=== PATIENT | female | born 1950 | race Caucasian/White ===

== ENCOUNTER 2021-09-03 12:51 | Emergency (ER) | payer OTHER ==
--- OUTSIDE RECORDS SUMMARY | 2021-09-03 12:54 | XMS REPORT | Continuity of Care Document ---
:1950 Author Organization [facility] t Address [address] [place] [address] Care Team Providers Name Role Phone Freddy COBIAN Attending Clinician Unavailable RYDER SINGH Attending Clinician Unavailable RYDER SINGH Attending Clinician Unavailable Freddy COBIAN Admitting Clinician Unavailable Payers Payer Name Policy Type Policy Number Effective Date Expiration Date Nikos berumen [employer] MEDICARE ADV [id number] 2017 00:00:00 MEDICARE PART A [id number] 2017 \T\ B 00:00:00 Problems This patient has no known problems. Allergies, Adverse Reactions, Alerts Allergy Allergy Status Severity Reaction(s) Onset Inactive Treating Comm ents Source Name Type Date Date Clinician aspirin DA Active [place] 2018-0 [facility] 6-06 [place] 00:00: [facility] [place] Active [place] [facility] 1-16 [place] 00:00: [facility]ope [facility] NO KNOWN Drug Active [facility] ALLERGIE Class [facility] Medications This patient has no known medications. Procedures This patient has no known procedures. Encounters Start End Encounter Admission Attending Care Care Encounter Source Date/Time Date/Time Type Type Clinicians Facility Department ID 2021-04-26 Outpatient R [facility] [id number] [facility] 05:22:17 JUDY Umana [facility] 2020-09-23 2020-09-23 Outpatient R [facility] [id number] [facility] 13:00:00 13:00:00 [id number] [facility] 2020-09-23 2020-09-23 Outpatient R [facility] [id number] Univers 13:00:00 13:00:00 JUDY Umana [facility] 2020-09-22 2020-09-22 Outpatient R [facility] [id number] Univers 15:15:00 15:15:00 [id number] [facility] 2020-09-22 2020-09-22 Outpatient R [facility] [id number] Univers 15:15:00 15:15:00 [facility] 2020-06-09 2020-06-09 Outpatient R MED SINGH [facility] [id number] Univers 09:20:00 09:20:00 MED SINGH [id number] [facility] 2020-06-09 2020-06-09 Outpatient R MED SINGH [facility] [id number] Univers 09:20:00 09:20:00 MED SINGH [facility] 2020-03-14 2020-03-14 Outpatient R MED SINGH [facility] [id number] Univers 09:20:00 09:20:00 MED SINGH [id number] [facility] 2020-03-14 2020-03-14 Outpatient R MED SINGH [facility] [id number] Univers 09:20:00 09:20:00 MED SINGH [facility] 2019-12-07 2019-12-07 Outpatient MED DAVISON [facility] [id number] Univers 11:00:00 11:00:00 MED SINGH [id number] [facility] 2019-12-07 2019-12-07 Outpatient R MED SINGH [facility] [id number] Univers 11:00:00 11:00:00 MED SINGH [facility] Results Test Description Test Time Test Comments Results Result Comments Source COMPREHENSIVE METABOLIC PANEL 2018-11-30 19:30:00 Test Item Value Reference Range Interpretation Comme nts SODIUM (test code = NA) 141 mmol/L 136-145 N POTASSIUM (test code = K) 4.2 mmol/L 3.5-5.1 N CHLORIDE (test code = CL) 104.0 mmol/L 98-107 N CARBON DIOXIDE (test code = CO2) 26.3 mmol/L 21-32 N GLUCOSE (test code = GLU) 107 mg/dL 70-110 N BLOOD UREA NITROGEN (test code = 30 mg/dL 7-18 H BUN) GLOMERULAR FILTRATION RATE (test 50.6 >60 Unit of measure: code = GFR) mL/min/1.73 m2R eference Range:Healthy A dults >90 mL/min/1.7 3 m2 For Chronic Kidney Disease: Stage II Mi ld Decrease in GFR 6 0-90 Stage III Mo derate Decrease in GFR 30-59 Stage IV Se justine Decrease in GFR 15- 29 Stage V Kidney F ailure <15 CREATININE (test code = CREAT) 1.08 mg/dL 0.55-1.30 N TOTAL PROTEIN (test code = PROT) 6.8 g/dL 6.4-8.2 N ALBUMIN (test code = ALB) 3.6 g/dL 3.4-5.0 N GLOBULIN (test code = GLOB) 3.2 g/dL 2.2-4.2 N ALBUMIN/GLOBULIN RATIO (test 1.1 0.7-2.0 N code = A/G) CALCIUM (test code = CA) 8.5 mg/dL 8.2-10.1 N BILIRUBIN TOTAL (test code = 0.43 mg/dL 0.2-1.00 N BILT) SGOT/AST (test code = AST) 21.0 U/L 15-37 N SGPT/ALT (test code = ALT) 31.0 U/L 12-78 N P lease note new normal range. ALKALINE PHOSPHATASE TOTAL (test 101 U/L 46-116 N code = ALKP) PROTHROMBIN [id number] 19:25:00 Test Item Value Reference Range Interpretation Comments PROTHROMBIN TIME 11.0 secs 10.1-12.5 N PATIENT (test code = PTP) INTERNATIONAL NORMAL 0.97 <2.0 RECOMME NDED THERAPEUTIC RATIO (test code = RANGE FOR ORAL INR) ANTICOAGULANTTR EATMENT: CONDI TION INRProphylaxis of venous thrombos is in 2.0 - 3.0 high-risk medic al or surgical patientsTreatme nt of venous thrombos is 2.0 - 3.0Prevention o f embolism 2.0 - 3.0Prevention o f recurrent embol ism, or 3.0 - 4. 5 patients with mechanical pros thetic intravascular v gomes IS PATIENT ON ANTICOAGULANTS ? NHas Lab been notified if Patient is on Heparin Drip? NOTHROMBOPLASTIN TIME [id number] 19:25:00 Test Item Value Reference Range Interpretation Comments PTT ACTIVATED (test code = APTT) 31.2 secs 24.9-37.0 N IS PATIENT ON ANTICOAGULANTS ? NHas Lab been notified if Patient is on Heparin Drip? NOCBC W/AUTO [id number] 18:33:00 Test Item Value Reference Range Interpretation Comments WHITE BLOOD CELL (test code = WBC) 7.3 K/mm3 5.8-11.0 N RED BLOOD CELL (test code = RBC) 4.74 M/mm3 4.2-5.4 N HEMOGLOBIN (test code = HGB) 13.3 g/dL 12-16 N HEMATOCRIT (test code = HCT) 41.1 % 37-47 N MEAN CELL VOLUME (test code = MCV) 87 fL 80-98 N MEAN CELL HGB (test code = MCH) 28.1 pg 27-34 N MEAN CELL HGB CONCENTRATION (test 32.4 g/dL 30.8-34.1 N code = MCHC) RED CELL DISTRIBUTION WIDTH (test 14.3 % 11-16 N code = RDW) PLT (test code = PLT) 320 K/mm3 130-400 N MEAN PLATELET VOLUME (test code = 9.6 fL 8.9-12.1 N MPV) NEUTROPHIL % (test code = NT%) 61.5 % 45-70 N LYMPHOCYTE % (test code = LY%) 28.0 % 20-40 N MONOCYTE % (test code = MO%) 8.6 % 3-10 N EOSINOPHIL % (test code = EO%) 1.2 % 1-5 N BASOPHIL % (test code = BA%) 0.4 % 0.0-1.1 N NEUTROPHIL # (test code = NT#) 4.50 K/mm3 2.00-7.50 N LYMPHOCYTE # (test code = LY#) 2.05 K/mm3 1.50-4.00 N MONOCYTE # (test code = MO#) 0.63 K/mm3 0.2-0.8 N EOSINOPHIL # (test code = EO#) 0.09 K/mm3 0.04-0.4 N BASOPHIL # (test code = BA#) 0.03 K/mm3 0.02-0.10 N MANUAL DIFF REQUIRED (test code = NO MANUAL DIFF MDIFF) NUCLEATED RED BLOOD CELL (test 0 % 0-0 N code = NRBC)
--- NOTE | 2021-09-03 13:57 | RAD REPORT ---
EXAM DESCRIPTION: CT - CTHCSPWOC - 09/03/2021 1:43 pm CLINICAL HISTORY: Trauma, head and neck injury. PAIN COMPARISON: No comparisons TECHNIQUE: Axial 5 mm thick images of the head were obtained. Axial 2 mm thick images of the cervical spine were obtained with sagittal and coronal reconstruction images generated and reviewed. All CT scans are performed using dose optimization technique as appropriate and may include automated exposure control or mA/KV adjustment according to patient size. FINDINGS: CT HEAD WITHOUT CONTRAST: No acute hemorrhage, hydrocephalus or extra-axial collection is identified.No areas of brain edema or midline shift. The paranasal sinuses and mastoids are clear.The calvarium is intact. CT CERVICAL SPINE WITHOUT CONTRAST: Loss of the normal cervical lordosis is likely related to underlying degenerative changes. Cervical s pondylosis is present, particularly at C5-6 and C6-7. There is evidence of neural foraminal narrowing . Mild central spinal stenosis is noted at C6-7. IMPRESSION: No acute intracranial or cervical spine findings.
--- NOTE | 2021-09-03 14:16 | RAD REPORT ---
EXAM DESCRIPTION: RAD - Shoulder Left 2 View - 09/03/2021 2:09 pm CLINICAL HISTORY: PAIN COMPARISON: No comparisons FINDINGS/IMPRESSION: No acute fracture. No malalignment. Mild left AC joint degenerative changes wit h subacromial spurring.
--- NOTE | 2021-09-03 14:16 | RAD REPORT ---
EXAM DESCRIPTION: RAD - Chest Single View - 09/03/2021 2:09 pm CLINICAL HISTORY: TRAUMA COMPARISON: Chest Pa And Lat (2 Views) dated 08/11/2016; CHEST PA AND LAT 2 VIEW dated 08/28/2014 FINDINGS: Lines: None. Lungs: No evidence of edema or pneumonia. Pleural: No significant pleural effusions or pneumothorax. Cardiac: The heart size is within normal limits. Bones: No acute fractures. Other: IMPRESSION: No acute cardiopulmonary disease.
--- NOTE | 2021-09-03 14:18 | RAD REPORT ---
EXAM DESCRIPTION: RAD - Wrist Right 3 View - 09/03/2021 2:09 pm CLINICAL HISTORY: PAIN COMPARISON: No comparisons FINDINGS/IMPRESSION: No acute fracture. No malalignment. Radiocarpal joint space narrowing. Advanced degenerative changes are present at the base of the thumb.
--- NOTE | 2021-09-03 14:19 | RAD REPORT ---
EXAM DESCRIPTION: RAD - Hand Left 3 View - 09/03/2021 2:09 pm CLINICAL HISTORY: PAIN COMPARISON: Hand Left 3 View dated 10/19/2017; Wrist Right 3 View dated 09/03/2021 FINDINGS/IMPRESSION: No acute fracture. Subluxation at the PIP joints related to degenerative change s. Moderate to advanced interphalangeal joint degenerative changes which are diffuse. Moderate degene rative changes are present the base of the thumb.
--- NOTE | 2021-09-03 16:27 | RAD REPORT ---
EXAM DESCRIPTION: RAD - Knee Right 3 View - 09/03/2021 4:22 pm CLINICAL HISTORY: PAIN COMPARISON: No comparisons FINDINGS: No acute fracture. No malalignment. No significant focal degenerative changes. Right total knee arthroplasty. No evidence of hardware complications. IMPRESSION: No acute osseous abnormality involving the right knee.
--- NOTE | 2021-09-03 16:39 | ER ---
Nurse's Notes [facility] Name: Nadege Alves Age: 71 yrs Sex: Female : 1950 Arrival Date: 09/03/2021 Time: 12:52 Bed 13 Private MD: Harpreet Sarmiento E Diagnosis: Fall (on) (from) other stairs and steps;Abrasion of unspecified part of head, initial encounter;Pain in left shoulder;Headache;Pain in right knee;Pain in right wrist;Pain in left hand;Other specified arthritis, left hand Presentation: 09/03 12:59 Chief complaint: Patient states: "I fell yesterday and hurt my right wrist. I fell face ab2 forward hitting my nose and teeth. I was diagnosed with a UTI this morning." Pt c/o a headache and right wrist pain, right knee pain and eft shoulder pain. Pt states she did hit her head but denied LOC. Pt states she fell at standing level down 2 stairs. 12:59 Acuity: BENJA 3 ab2 12:59 Method Of Arrival: Ambulatory ab2 13:05 Coronavirus screen: Vaccine status: Patient reports receiving the 2nd dose of the covid ab2 vaccine. Client denies travel out of the [place] in the last 14 days. At this time, the client does not indicate any symptoms associated with coronavirus-19. Ebola Screen: Patient negative for fever greater than or equal to 101.5 degrees Fahrenheit, and additional compatible Ebola Virus Disease symptoms Patient denies exposure to infectious person. Patient denies travel to an Ebola-affected area in the 21 days before illness onset. No symptoms or risks identified at this time. Initial Sepsis Screen: Does the patient meet any 2 criteria? No. Patient's initial sepsis screen is negative. Does the patient have a suspected source of infection? No. Patient's initial sepsis screen is negative. Risk Assessment: Do you want to hurt yourself or someone else? Patient reports no desire to harm self or others. Onset of symptoms is unknown. Triage Assessment: 13:06 General: Appears in no apparent distress. uncomfortable, Behavior is calm, cooperative, ab2 appropriate for age. Pain: Complains of pain in right hand, right arm, left arm and right knee Pain does not radiate. Pain currently is 8 out of 10 on a pain scale. Historical: - Allergies: 13:05 Aspirin; ab2 - PMHx: 13:05 acid reflux; Arthritis; Hypertension; ab2 - Immunization history:: Adult Immunizations up to date. - Social history:: Smoking status: Patient denies any tobacco usage or history of. Screenin:52 Abuse screen: Denies threats or abuse. Denies injuries from another. Nutritional jg9 screening: No deficits noted. Tuberculosis screening: No symptoms or risk factors identified. Fall Risk Fall in past 12 months (25 points). Secondary diagnosis (15 points) dementia, impaired mobility. Assessment: 13:05 Reassessment: No changes from previously documented assessment. Neuro: Reports headache jg9 in right in left parietal area. Musculoskeletal: Reports pain in left arm-left shoulder and left hand and right hand and right knee. Vital Signs: 13:05 BP 135 / 74; Pulse 66; Resp 18; Temp 98.0; Pulse Ox 96% on R/A; Weight 86.64 kg; Height ab2 5 ft. 5 in. (165.10 cm); Pain 8/10; 13:15 BP 132 / 68; Pulse 65; Resp 16 S; Pulse Ox 95% on R/A; jg9 14:40 BP 109 / 55; Pulse 54; Resp 17 S; Pulse Ox 93% on R/A; Pain 8/10; jg9 15:30 BP 128 / 60; Pulse 60; Resp 18 S; Pulse Ox 95% on R/A; jg9 16:30 BP 122 / 51; Pulse 58; Resp 18 S; Pulse Ox 95% ; jg9 13:05 Body Mass Index 31.78 (86.64 kg, 165.10 cm) ab2 ED Course: 12:52 Patient arrived in ED. am2 12:53 Harpreet Sarmiento MD is Private Physician. am2 12:58 Jorge Parra DO is Attending Physician. ms3 13:04 Triage completed. ab2 13:07 Arm band placed on left wrist. ab2 13:09 Bharti Ace, CHARLENE is Primary Nurse. jg9 13:43 CT Head C Spine In Process Unspecified. EDMS 13:52 Patient has correct armband on for positive identification. Bed in low position. Call jg9 light in reach. Side rails up X 1. 14:09 Shoulder Left (2 View) XRAY In Process Unspecified. EDMS 14:09 CXR XRAY In Process Unspecified. EDMS 14:09 Wrist Right 3 View XRAY In Process Unspecified. EDMS 14:09 Hand Left 3 View XRAY In Process Unspecified. EDMS 14:30 Patient moved back from radiology. jg9 16:22 Knee Right 3 View XRAY In Process Unspecified. EDMS 16:47 No provider procedures requiring assistance completed. jg9 16:47 Patient did not have IV access during this emergency room visit. jg9 Administered Medications: 16:46 Drug: ADAcel 0.5 ml {Poker Supervisor: [employer]. Exp: 11/14/2022. Lot #: [id number]. } jg9 Route: IM; Site: right deltoid; 16:47 Follow up: Response: No adverse reaction; Medication administered at discharge. jg9 Outcome: 16:38 Discharge ordered by . ms3 16:47 Discharged to home ambulatory. jg9 16:47 Condition: unchanged 16:47 Discharge instructions given to patient, Instructed on discharge instructions, follow up and referral plans. Demonstrated understanding of instructions, follow-up care. 16:47 Patient left the ED. jg9 Signatures: Dispatcher [employer] EDMS Brenda Kaur am2 Jorge Parra DO DO ms3 Bharti Ace, RN RN jg9 Rafa Wynne2
--- NOTE | 2021-09-03 16:39 | EDPHYS ---
Physician Documentation [facility] Name: Nadege Alves Age: 71 yrs Sex: Female : 1950 Arrival Date: 09/03/2021 Time: 12:52 Bed 13 Private MD: Harpreet Sarmiento E ED Physician Jorge Parra HPI: 09/03 13:32 This 71 yrs old Female presents to ER via Ambulatory with complaints of Fall Injury, ms3 Wrist Pain, confusion. 13:32 Details of fall: The patient fell from an upright position, while standing. Onset: The ms3 symptoms/episode began/occurred acutely, 1 day(s) ago. Associated injuries: The patient sustained injury to the head, abrasion, left hand, anterior aspect of right shoulder, right wrist and right hand, painful injury. Severity of symptoms: in the emergency department the symptoms are actually worse, moderately. 71-year-old female with past medical history of GERD, arthritis, hypertension presents status post fall down 2 stairs without loss of consciousness yesterday. Patient states her pain is an 8/10 described as aching and located in her left shoulder, right wrist, right chest, left hand. Patient denies nausea, vomiting, diarrhea, abdominal pain.. Historical: - Allergies: 13:05 Aspirin; ab2 - PMHx: 13:05 acid reflux; Arthritis; Hypertension; ab2 - Immunization history:: Adult Immunizations up to date. - Social history:: Smoking status: Patient denies any tobacco usage or history of. ROS: 13:59 Constitutional: Negative for fever, and chills. Eyes: Negative for injury, pain, ms3 redness, and discharge, Cardiovascular: Negative for chest pain, and palpitations. Respiratory: Negative for shortness of breath, cough, wheezing, and pleuritic chest pain, Abdomen/GI: Negative for abdominal pain, nausea, vomiting, diarrhea, and constipation. 13:59 Skin: Positive for abrasion(s), ecchymosis. 13:59 Neuro: Positive for headache. Exam: 13:59 Constitutional: This is a well developed, well nourished patient who is awake, alert, ms3 and in no acute distress. Head/Face: Normocephalic, atraumatic. Chest/axilla: Normal chest wall appearance and motion. Nontender with no deformity. Cardiovascular: Regular rate and rhythm with a normal S1 and S2. No gallops, murmurs, or rubs. Normal PMI, no JVD. No pulse deficits. Respiratory: Lungs have equal breath sounds bilaterally, clear to auscultation and percussion. No rales, rhonchi or wheezes noted. No increased work of breathing, no retractions or nasal flaring. Abdomen/GI: Soft, non-tender, with normal bowel sounds. No distension or tympany. No guarding or rebound. No evidence of tenderness throughout. 13:59 Head/face: Noted is abrasion(s), that are mild. 13:59 Back: pain, that is mild, ROM is normal, vertebral tenderness, is not appreciated, muscle spasm, is appreciated in the . Vital Signs: 13:05 BP 135 / 74; Pulse 66; Resp 18; Temp 98.0; Pulse Ox 96% on R/A; Weight 86.64 kg; Height ab2 5 ft. 5 in. (165.10 cm); Pain 8/10; 13:15 BP 132 / 68; Pulse 65; Resp 16 S; Pulse Ox 95% on R/A; jg9 14:40 BP 109 / 55; Pulse 54; Resp 17 S; Pulse Ox 93% on R/A; Pain 8/10; jg9 15:30 BP 128 / 60; Pulse 60; Resp 18 S; Pulse Ox 95% on R/A; jg9 16:30 BP 122 / 51; Pulse 58; Resp 18 S; Pulse Ox 95% ; jg9 13:05 Body Mass Index 31.78 (86.64 kg, 165.10 cm) ab2 MDM: 13:23 Patient medically screened. ms3 13:32 Differential diagnosis: abrasion, closed head injury, contusion, fracture, sprain, ms3 strain. 16:38 Data reviewed: vital signs, nurses notes, radiologic studies, CT scan, plain films. ms3 Data interpreted: Pulse oximetry: on room air is 95 %. Counseling: I had a detailed discussion with the patient and/or guardian regarding: the historical points, exam findings, and any diagnostic results supporting the discharge/admit diagnosis, radiology results, the need for outpatient follow up, to return to the emergency department if symptoms worsen or persist or if there are any questions or concerns that arise at home. 09/03 13:26 Order name: Shoulder Left (2 View) XRAY; Complete Time: 14:36 ms3 09/03 13:26 Order name: CXR XRAY; Complete Time: 14:36 ms3 09/03 13:26 Order name: Wrist Right 3 View XRAY; Complete Time: 14:36 ms3 09/03 13:26 Order name: Hand Left 3 View XRAY; Complete Time: 14:36 ms3 09/03 13:26 Order name: CT Head C Spine; Complete Time: 14:36 ms3 09/03 14:36 Order name: Knee Right 3 View XRAY; Complete Time: 16:32 ms3 Administered Medications: 16:46 Drug: ADAcel 0.5 ml {Oleo Hasher And Renderer: [employer]. Exp: 11/14/2022. Lot #: [id number]. } jg9 Route: IM; Site: right deltoid; 16:47 Follow up: Response: No adverse reaction; Medication administered at discharge. jg9 Disposition Summary: 09/03/21 16:38 Discharge Ordered Location: Home ms3 Condition: Stable ms3 Diagnosis - Fall (on) (from) other stairs and steps ms3 - Abrasion of unspecified part of head, initial encounter ms3 - Pain in left shoulder ms3 - Headache ms3 - Pain in right knee ms3 - Pain in right wrist ms3 - Pain in left hand ms3 - Other specified arthritis, left hand ms3 Followup: ms3 - With: Private Physician - When: 2 - 3 days - Reason: Discharge Instructions: - Discharge Summary Sheet ms3 - Musculoskeletal Pain ms3 Forms: - Medication Reconciliation Form ms3 - Thank You Letter ms3 - Antibiotic Education ms3 - Prescription Opioid Use ms3 Signatures: Dispatcher [employer] EDJorge Reza DO DO ms3 Bharti Ace RN RN jg9 Rafa Wynne
[2021-09-03] MEDS ORDERED: TETANUS & DIPHTHERIA TOX,ADULT 0.5 ML VIAL ONE (16:45)
[2021-09-03 18:05] VITALS: TEMP 98
[2021-09-03 18:10] VITALS: O2SAT 95
[2021-09-03 18:11] VITALS: BP 122/51
== END 2021-09-03 16:47 | disposition home or self-care (01) ==
LOC: ER 12:51
DX: S00.81XA Abrasion of other part of head, initial encounter (principal); M25.512 Pain in left shoulder; M25.561 Pain in right knee; M25.531 Pain in right wrist; M13.842 Other specified arthritis, left hand; W10.8XXA Fall (on) (from) other stairs and steps, initial encounter; Z23 Encounter for immunization; Z88.6 Allergy status to analgesic agent; I10 Essential (primary) hypertension
CPT/HCPCS: 70450; 71045; 72125; 90471; 90714; 99283